=== PATIENT | male | born 1995 | race Caucasian/White ===

== ENCOUNTER 2016-09-06 13:04 | Emergency (ER) | payer OTHER ==
[2016-09-06 13:26] VITALS: RESP 18; TEMP 98
[2016-09-06 13:39] VITALS: BP 106/95; PULSE 75; O2SAT 99
--- NOTE | 2016-09-06 14:06 | UCPHY ---
[id number] complains of redness to the eye associated with goopy discharge. The eye symptoms started over the past 24 hours and right more than left. He has associated cold symptoms consisting of nasal congestion over the past 5 days or so. He feels the nasal congestion is improving at this point. He denies any other associated symptoms any notes no exacerbating or alleviating factors for his eye symptoms. ROS: No fevers or chills. No visual changes. No eye pain. 5 point ROS is otherwise negative. Past Medical/Surgical History: Otherwise healthy Smoking Status: Never smoked Physical Exam: Physical Exam Vital signs are normal. General: No acute distress HEENT: Nose: Clear discharge. Oropharynx: No erythema or exudates. Eyes: There is conjunctival injection the right more than left. No active discharge at this time. Pupils equal and react to light. Extraocular motions are intact. Lungs: No respiratory distress. Cardiac: Brisk capillary refill is intact throughout. Skin: No rash or pallor. Neuro: Alert Initial differential diagnosis: Viral versus bacterial conjunctivitis Constitutional: Initial Vital Signs Temperature (C) 36.6 C 09/06/16 13:23 Heart Rate 75 09/06/16 13:23 Respiratory Rate 18 09/06/16 13:23 Blood Pressure 106/95 H 09/06/16 13:23 O2 Sat (%) 99 09/06/16 13:23 O2 Delivery Mode Room Air Allergies/Adverse Reactions: No Known Allergies Allergy (Unverified 09/06/16 13:23) Home Medications: Medication Instructions Recorded Ofloxacin 0.3% [Ocuflox 0.3% (RX)] 2 drops EACHEYE Q1 #1 btl 09/06/16 Departure - Departure Disposition: Home, Routine, Self-Care Clinical Impression: conjuctivitis Condition: Good Instructions: Conjunctivitis (ED) Additional Instructions: Diagnosis: 1. Conjunctivitis 2. Viral URI Plan: Wash hands frequently Ocuflox eyedrops Considered [id number] nasal steroid for your nasal congestion Continue humidifier Also consider guaifenesin for nasal congestion. Return for any significant worsening despite the treatment plan Referrals: Bhavesh Lawrence MD [Primary Care Provider] - As per Instructions Prescriptions: Ofloxacin 0.3% [Ocuflox 0.3% (RX)] 2 drops EACHEYE Q1 #1 btl - PQRS PQRS Measurement: NA
== END 2016-09-06 14:12 | disposition home or self-care (01) ==
LOC: CED 13:04
DX: H10.9 Unspecified conjunctivitis (principal); J06.9 Acute upper respiratory infection, unspecified
CPT/HCPCS: G0463-PO